=== PATIENT | male | born 1965 | race Two or more races ===

== ENCOUNTER 2016-11-23 16:26 | Emergency (ER) | payer BC ==
--- NOTE | 2016-11-23 17:36 | EDPHY ---
H & P Stated Complaint: Flu like sxs x 1 wk;seen at [facility] last week for same Time Seen by Provider: 11/23/16 17:30 HPI/ROS: CHIEF COMPLAINT: Cold symptoms HISTORY OF PRESENT ILLNESS: 51-year-old male presents emergency department complaining of URI symptoms times 10 days. Patient was seen at urgent care 5 days ago and had a negative strep and flu swab. Patient reports his symptoms have worsened, he has a continued sore throat, head pressure, ear pressure, nasal congestion and a worsening cough that is worse at night and keeping him awake. Patient has had multiple sick contacts at work. Patient reports worsening head pressure when he bends over. He has been taking intermittent Advil and Robitussin. Patient denies fevers. REVIEW OF SYSTEMS: A comprehensive 10 point review of systems is otherwise negative aside from elements mentioned in the history of present illness. Source: Patient Exam Limitations: No limitations - Personal History Current Tetanus Diphtheria and Acellular Pertussis (TDAP): Yes - Medical/Surgical History Hx Diabetes: Yes Other PMH: HTN - Social History Smoking Status: Never smoked - Physical Exam Exam: General: Alert, nontoxic. ENT: Tympanic membranes clear, external auditory canal, external ear and surrounding soft tissue including over the mastoid unremarkable. Nasopharynx is injected, there is rhinorrhea, nasal turbinates with erythema and swelling. Oropharynx with erythema or edema. There is no exudate. No tonsillar hypertrophy. No asymmetry. The uvula is midline. No elevation of tongue. There is no hoarseness. No drooling, patient has good control of their oral secretions. No trismus. No stridor. Frontal sinus tenderness to palpation. Cardiac: Regular rate and rhythm. Respiratory: Lungs clear to auscultation bilaterally. Neurological: no meningismus. Skin: No rashes. Constitutional: Initial Vital Signs Temperature (C) 36.7 C 11/23/16 16:40 Heart Rate 90 11/23/16 16:40 Respiratory Rate 18 11/23/16 16:40 Blood Pressure 141/75 H 11/23/16 16:40 O2 Sat (%) 94 11/23/16 16:40 O2 Delivery Mode Room Air Allergies/Adverse Reactions: No Known Allergies Allergy (Unverified 11/23/16 16:39) Home Medications: Medication Instructions Recorded Albuterol Sulfate [Proair 2 puffs IH Q4-6PRN PRN #1 inh 11/23/16 Respiclick] Aspirin [Aspirin 81mg (*)] 81 mg PO DAILY 11/23/16 Azithromycin 250 mg PO DAILY #4 tablet 11/23/16 Benzonatate [Tessalon Pearles (RX)] 200 mg PO Q6-8PRN PRN #20 cap 11/23/16 Fluticasone Nasal [Flonase Nasal 1 sprays NASAL DAILY #1 mdi 11/23/16 [place] (RX)] Guaifenesin/Codeine Phosphate 10 ml PO HS PRN #100 ml 11/23/16 [Guaifenesin-Codeine Liquid] Losartan Potassium [Cozaar 50 mg 50 mg PO 11/23/16 (*)] Metformin HCl [Metformin 1000 mg] 1,000 mg PO 11/23/16 Medical Decision Making - Diagnostics Imaging: Chest x-ray independently reviewed by me- Impression: Probable right upper lobe and left lower lobe pneumonia with underlying bronchitis. Recommend following to clear. Dictated By: Jovani Sidhu MD ED Course/Re-evaluation: 51-year-old male presents with a worsening cough and URI symptoms for the past 10 days. Patient is nontoxic appearing, room air oxygen saturations are 96%, he is afebrile. Patient is given a DuoNeb in the emergency department. He was given his 1st dose of azithromycin. Chest x-ray shows a right upper lobe and left lower lobe pneumonia. Patient will be treated outpatient with a Z-Jordan. Patient is taking metformin for pre diabetes. As I will send the patient home with a prescription for an albuterol inhaler, Flonase, Tessalon Perles and guaifenesin with codeine. I gave the patient strict return precautions for difficulty breathing, shortness breath, chest pain, worsening symptoms or concerns. He agrees to follow up with his primary care doctor on Friday for re- evaluation. Differential Diagnosis: Diagnosis considered but not limited to viral URI, influenza, pneumonia, bronchitis. - Data Points Medications Given: Discontinued Medications Acetaminophen (Tylenol) 650 mg PO EDNOW ONE Stop: 11/23/16 17:59 Last Admin: 11/23/16 18:14 Dose: 650 mg Albuterol/Ipratropium (Duoneb) 3 ml IH EDNOW ONE Stop: 11/23/16 17:59 Last Admin: 11/23/16 18:14 Dose: 3 ml Azithromycin (Zithromax) 500 mg PO EDNOW ONE PRN Reason: Protocol Stop: 11/23/16 18:19 Last Admin: 11/23/16 18:24 Dose: 500 mg Benzonatate (Tessalon Pearles) 200 mg PO EDNOW ONE Stop: 11/23/16 17:59 Last Admin: 11/23/16 18:14 Dose: 200 mg Departure - Departure Disposition: Home, Routine, Self-Care Clinical Impression: Community acquired pneumonia Condition: Good Instructions: Albuterol (By breathing), Community Acquired Pneumonia (ED) Additional Instructions: Take over the counter Tylenol and ibuprofen as instructed. You may take 600 mg of ibuprofen every 8 hours with food for 3-5 days, then also take 650 mg of Tylenol every hours. You can alternate these so you're taking 1 or the other every 4 hours. Take your antibiotics as prescribed. Use 2 puffs of your albuterol inhaler every 4-6 hours as needed for cough. Use 1 spray of Flonase in each nostril daily for 7 days. Take Tessalon Perles as needed for cough during the day every 6-8 hours, take the cough syrup at night as needed. This has codeine in it, it will cause drowsiness. Do not drive or operate any machinery while taking this, do not work while taking this. Rest, drink plenty of fluids. Use a saline nasal rinse, humidifier at night, hot steam showers. Follow up with your primary care doctor next week for re-evaluation. Return to the ED for worsening symptoms, difficulty breathing, chest pain, other concerns. Referrals: Francis Tadeo [Primary Care Provider] - As per Instructions Prescriptions: Albuterol Sulfate [Proair Respiclick] 2 puffs IH Q4-6PRN PRN #1 inh PRN Reason: Cough, Moderate Azithromycin 250 mg PO DAILY #4 tablet Benzonatate [Tessalon Pearles (RX)] 200 mg PO Q6-8PRN PRN #20 cap PRN Reason: Cough, Moderate Fluticasone Nasal [Flonase Nasal [place] (RX)] 1 sprays NASAL DAILY #1 mdi Guaifenesin/Codeine Phosphate [Guaifenesin-Codeine Liquid] 10 ml PO HS PRN #100 ml PRN Reason: Cough, Moderate
[2016-11-23] MEDS ORDERED: ACETAMINOPHEN 325 MG TAB PO ONE (17:58)
[2016-11-23] MEDS ORDERED: IPRATROPIUM/ALBUTEROL 3 ML DEYVIAL IH ONE (17:58)
[2016-11-23] MEDS ORDERED: BENZONATATE 100 MG CAP PO ONE (17:58)
[2016-11-23] MEDS ORDERED: ALBUTEROL INH PREPACK MDI TAKEHOME ONE (18:18)
[2016-11-23] MEDS ORDERED: AZITHROMYCIN 250 MG TAB PO ONE (18:18)
[2016-11-23] MEDS ORDERED: guaiFENesin/CODEINE PHOS 10 ML UDCUP PO ONE (18:21)
[2016-11-23 18:41] VITALS: BP 138/86; PULSE 85; RESP 16; TEMP 98.2; O2SAT 92
== END 2016-11-23 18:49 | disposition home or self-care (01) ==
DX: J18.9 Pneumonia, unspecified organism (principal); E11.9 Type 2 diabetes mellitus without complications; I10 Essential (primary) hypertension; Z79.82 Long term (current) use of aspirin; Z79.84 Long term (current) use of oral hypoglycemic drugs